=== PATIENT | female | born 1980 | race Caucasian/White ===

== ENCOUNTER 2019-11-30 21:11 | Emergency (ER) | payer OTHER ==
[~2019-11-30] VITALS: Ht 170.2 cm; Wt 86.2 kg
--- NOTE | 2019-11-30 21:32 | Emergency Department Note ---
History of Present Illnes History of Present Illness Chief Complaint: Headache History of Present Illness This is a 39 year old female, with a history of stage III breast cancer that was diagnosed a little over year ago status post chemotherapy, radiation, and now chemotherapy every 3 weeks, and history of migraine headaches who presents for treatment of a headache that started approximately 4 hours prior to arrival. Patient states she has a long history of migraine headaches, and typically has @ 3 migraine headaches per month, which typically respond to Excedrin migraine. Patient states that she took 2 Excedrin migraine 2 hours prior to presentation, without relief of her symptoms. She states that this headache is on the right frontal area of her head, throbbing, and associated with nausea. She has not had any vomiting, numbness, tingling, visual changes or focal weakness. She states that this headache is similar to her typical migraine headaches, except for the fact that this one seems a bit more intense, and did not respond to the Excedrin. Patient states she has not seen a neurologist for the headaches, and she has not taken any prescription medications for her headaches. Patient states that this is the first ER visit she's had to treat her migraine headaches. She is unaware of any triggers associated with the headaches. Historian: Patient Arrival Mode: Car Deaf/Hard Of Hearing Specialist Required: No Onset (how long ago): hour(s) (4) Location: right frontal area Quality: throbbing Radiation: non-radiation Severity: moderate Onset quality: sudden Duration (how long): hour(s) (4) Timing of current episode: constant Progression: unchanged Chronicity: recurrent Context: other (pt undergoing chemo q 3 weeks for Stage III breast cancer) Relieving factors: none Exacerbating factors: none Associated symptoms: nausea/vomiting (nausea, without vomiting) Treatments prior to arrival: other (Excedrin Migraine, 2 hours CULINARY ASSISTANT) Risk factors: history of Migraines; Stage III Breast Ca Past Medical/Family History Physician Review I have reviewed the patient's past medical and family history. Any updates have been documented here. Past Medical History Recent Fever: No Clinical Suspicion of Infectio: No New/Unexplained Change in Ment: No Past Medical History: Cancer (Stage III Breast Cancer), Migraines Other Surgery: Right Subclavian Portacath LUMPECTOMY L-BREAST Social History Smoking Cessation: Never Smoker Alcohol Use: None Any Illegal Drug Use: No TB Exposure/Symptoms: No Physically hurt or threatened: No Other Last Tetanus: UNK Any Pre-Existing Lines (PICC,: No Is patient up to date on immun: No Last Flu: NONE Last Pneumovax: NA Review of Systems Review of Systems Constitutional: no symptoms EENTM: no symptoms Cardiovascular: no symptoms Respiratory: no symptoms Gastrointestinal: nausea Genitourinary: no symptoms Musculoskeletal: no symptoms Neurological: headache (without paresthesia, weakness, visual changes, or slurred speech) Psychological: anxiety Review of other systems All other systems reviewed and negative. Physical Exam Related Data Allergies: Coded Allergies: No Known Allergies (Unverified , 11/30/19) Triage Vital Signs Vital Signs Date Time Temp Pulse Resp B/P (MAP) Pulse Ox O2 Delivery O2 Flow Rate FiO2 11/30/19 21:18 97.5 88 18 133/81 100 Vital signs reviewed: Yes Physical Exam CONSTITUTIONAL Constitutional: well-developed, well-nourished HENT HENT: normocephalic, atraumatic, oropharynx clear/moist, nose normal HENT L/R: left ext ear normal, right ext ear normal EYES Eyes: PERRL, conjunctivae normal NECK Neck: ROM normal, other (no neck pain or stiffness) PULMONARY Pulmonary: effort normal, breath sounds normal CARDIOVASCULAR Cardiovascular: regular rhythm, heart sounds normal, capillary refill normal, normal rate GASTROINTESTINAL Abdominal: soft, nontender, bowel sounds normal GENITOURINARY Genitourinary: exam deferred SKIN Skin: warm, dry MUSCULOSKELETAL Musculoskeletal: ROM normal NEUROLOGICAL Neurological: alert, oriented x 3, no gross motor or sensory deficits, other (no CN deficit, no abnormal gait or coordination) PSYCHOLOGICAL Psychological: mood/affect normal Results Laboratory Laboratory CBC - nl except for H/H = 11.4/35.7 CMP - nl except for K+ = 3.4, glucose = 133 UA - neg, except for Bili- small, ket = 15 mg/dl, blo - tr/lysed, pro - trace; Lab results reviewed: Yes Critical Care Time Subsequent provider I assumed direction of critical care for this patient from another provider of my specialty. Assessment & Plan Assessment & Plan Final Impression: (1) Frontal headache (2) Nausea (3) Stage III breast cancer in female Assessment & Plan - Less than10 minutes after the medications for her headache were given, I went in to check on patient, and she stated that "she is feeling anxious, wants to take the IV out, and to go home and rest." I explained that she had only received a small amount of the 500 cc IV saline that was ordered, and that I would like to observe her to make sure that this "anxiety" is not a reaction to the Reglan that was given for nausea. She states, "that she just wants to go home." She states that she was feeling a bit anxious before she received the medications. Her KAN is down to a 4/10 from an 02/02. - Pt is medically stable for discharge home. She is to see her Oncologist on 12/02/2019 for Chemo, and she is encouraged to discuss this ER visit with them, as well as her history of "migraine" headaches. Depart Disposition: HOME, SELF-CARE Last Vital Signs Date Time Temp Pulse Resp B/P (MAP) Pulse Ox O2 Delivery O2 Flow Rate FiO2 11/30/19 21:18 97.5 88 18 133/81 100 Home Meds Active Scripts Ondansetron (ONDANSETRON ODT) 8 Mg Tab.rapdis, 1 TAB PO Q6H for nausea, #20 TAB 0 Refills Prov:CORNEL CUMMINGS MD 11/30/19 Butalbital/Aspirin/Caffeine (FIORINAL 50-325-40 MG CAPSULE) 1 Each Capsule, 1-2 TAB PO Q6HR for headache, #20 TAB 0 Refills Prov:CORNEL CUMMINGS MD 11/30/19 CORNEL CUMMINGS MD Nov 30, 2019 21:32
[2019-11-30] MEDS ORDERED: DEXAMETHASONE SOD PHOS 10 MG/1 ML VIAL IV ONE (21:45)
[2019-11-30] MEDS ORDERED: DIPHENHYDRAMINE HCL INJ 50 MG/ML VIAL IV ONE (21:45)
[2019-11-30] MEDS ORDERED: METOCLOPRAMIDE HCL 10 MG/2ML VIAL IV ONE (21:45)
[2019-11-30] MEDS ORDERED: SODIUM CHLORIDE 0.9% 500ML 500 ML ONE (21:51)
[2019-11-30] MEDS ORDERED: METOCLOPRAMIDE HCL 10 MG/2ML VIAL ONE (21:51)
[2019-11-30] MEDS ORDERED: DIPHENHYDRAMINE HCL INJ 50 MG/ML VIAL ONE (21:51)
[2019-11-30] MEDS ORDERED: DEXAMETHASONE SOD PHOS 10 MG/1 ML VIAL ONE (21:51)
--- NOTE | 2019-11-30 22:05 | NUR ---
PER . PT C/O FEELING ANXIOUS AND WANTS TO HAVE IV REMOVED AND GO HOME TO REST. MD BACK IN TO SPEAK WITH PT AGAIN
--- NOTE | 2019-11-30 22:09 | NUR ---
PT REFUSED TO STAY. PER . DC'D IV PER V/O. 250CC NS STILL REMAINING IN BAG. PT STATES PAIN AT 5/10 NOW. NO REDNESS/SWELLING/BLEEDING FROM SITE AND CATH INTACT.
[2019-11-30] MEDS ORDERED: FIORINAL 50-321 EACH PO (22:15)
[2019-11-30] MEDS ORDERED: ONDANSETRON ODT8 MG PO (22:17)
[2019-11-30 22:25] VITALS: BP 115/67
[2019-11-30] MEDS ORDERED: SODIUM CHLORIDE 0.9% 500ML 500 ML IV ONE (23:00)
== END 2019-11-30 22:23 | disposition home or self-care (01) ==
LOC: FSED 21:11
DX: R51 Headache (principal); R11.0 Nausea; C50.919 Malignant neoplasm of unspecified site of unspecified female breast; Z79.899 Other long term (current) drug therapy
CPT/HCPCS: 80053; 81003; 81025; 85025; 96374; 96375; 96376; 99283; J1100; J1200; J2765; J7040